=== PATIENT | female | born 1990 | race Native Hawaiian/Other Pacific Islander ===

== ENCOUNTER 2018-05-12 11:21 | Emergency (ER) | payer OTHER, SELFPAY ==
[2018-05-12] VITALS (7 sets, daily range): BP systolic 128–151; BP diastolic 64–101; PULSE 80–95; RESP 14–18; TEMP 36.3–36.9; O2SAT 98–100
--- NOTE | 2018-05-12 12:04 | ED_ITS ---
HPI - Allergic Reaction General Chief complaint: Allergic Reaction Stated complaint: Hives Time Seen by Provider: 05/12/18 11:26 Source: patient Mode of arrival: ambulatory Limitations: no limitations History of Present Illness HPI narrative: Patient is an otherwise healthy 27-year-old female here for evaluation of vertigo. She also states that a couple days ago she had an onset of a rash to include hives. She has all another provider at an outside facility who yesterday started her on prednisone. She states that the hives have not improved but they have not worsened. She states that today she had onset of which he felt like was the room spinning. This also caused nausea and vomiting. No balance issues. She states that she currently does not have a headache but in the past has had headache on the top of her head which is pinpoint it reoccurs and lasts only seconds. She has got no numbness and tingling in arms and legs. She states that when the vertigo sensation is at its maximum intensity she does get short of breath. Related Data Home Medications Medication Instructions Recorded Confirmed prednisone 40 mg PO QDX5 05/12/18 05/12/18 Previous Rx's Medication Instructions Recorded meclizine 25 mg PO BID-TID PRN #20 tab 05/12/18 ondansetron [Zofran ODT] 4 mg PO Q8-12H PRN #10 tab 05/12/18 Allergies Allergy/AdvReac Type Severity Reaction Status Date / Time No Known Drug Allergies Allergy Verified 05/12/18 11:57 Review of Systems Constitutional Denies fatigue, Denies fever(s) and Reports headache(s) Eyes Denies loss of vision ENT Ears, Nose, Mouth, and Throat: Denies dysphagia, Reports vertigo, Reports dizziness and Reports headache(s) Cardiovascular Denies chest pain, Denies syncope and Reports dyspnea Respiratory Reports dyspnea Gastrointestinal Gastrointestinal: Denies dysphagia, Reports nausea and Reports vomiting Genitourinary Denies dysuria Musculoskeletal Denies abnormal gait Integumentary/Breasts Denies rash and Denies wounds Neurologic Denies abnormal gait, Denies behavioral changes, Denies burning sensations, Reports vertigo, Reports dizziness, Denies syncope, Reports headache(s), Denies loss of vision, Denies memory loss and Denies convulsions Psychiatric Denies behavioral changes and Denies memory loss Endocrine Denies fatigue Hematologic/Lymphatic Denies easy bleeding and Denies easy bruising PFSH Medical History Healthy adult (Acute) Surgical History No pertinent past surgical history (Acute) Exam Initial Vital Signs Initial Vital Signs: Vital Signs Temperature 98.5 F 05/12/18 11:26 Pulse Rate 80 05/12/18 11:26 Respiratory Rate 15 05/12/18 11:26 Blood Pressure 150/101 H 05/12/18 11:26 Pulse Oximetry 100 05/12/18 11:26 Const General: cooperative, healthy appearing, comfortable, well developed and well groomed Orientation: alert, awake and oriented x3 HENMT Head: normal to inspection and normocephalic Ears: TM's abnormal bilaterally Resp Effort & Inspection: normal respiratory effort Auscultation: clear to auscultation bilaterally Cardio Rate: regular rate Rhythm: regular rhythm Heart Sounds: no murmurs Pulses: radial pulses present GI Palpation: soft, No firm and No tender Skin Other: Patient with well circumscribed lesions on bilateral upper shoulders consistent with eyes that she had a couple days ago. Neuro General: alert, awake and oriented x3 Cranial Nerves: CN's II-XI intact bilaterally Cognition: normal cognition Speech: speech normal Gait: normal gait Motor: muscle tone normal throughout Sensory Exam: no sensory deficits noted Other: [place]-Hallpike positive on the right Extrem General: normal to inspection and capillary refill normal Psych Appearance: grossly normal and well kempt Course Orders Ordered: ED Orders 05/12/18 14:01 CT head/brain wo con Stat Discontinued Medications Sodium Chloride (Normal Saline 0.9%) 1,000 mls @ 1,000 mls/hr IV BOLUS ONE Stop: 05/12/18 13:25 Last Infusion: 05/12/18 13:57 Dose: 0 mls/hr Admin: 05/12/18 12:37 Dose: 1,000 mls/hr Meclizine HCl (Antivert) 25 mg PO NOW ONE Stop: 05/12/18 12:27 Last Admin: 05/12/18 12:38 Dose: 25 mg Vital Signs - 8 hr 05/12/18 11:26 05/12/18 11:36 05/12/18 12:00 Temperature 98.5 F 98.5 F Pulse Rate 80 80 80 Respiratory Rate 15 15 14 Blood Pressure 151/100 H Blood Pressure [Right Arm] 150/101 H 135/84 Pulse Oximetry 100 100 100 05/12/18 13:00 05/12/18 13:56 05/12/18 14:30 Temperature Pulse Rate 81 95 H 80 Respiratory Rate 15 18 18 Blood Pressure Blood Pressure [Right Arm] 136/80 138/65 134/72 Pulse Oximetry 100 100 98 05/12/18 15:14 Temperature 97.4 F L Pulse Rate 88 Respiratory Rate 16 Blood Pressure 128/64 Blood Pressure [Right Arm] Pulse Oximetry 100 MDM - Allergic Reaction Lab Data Attestation: I reviewed the patient's lab results. Point of Care Testing Test Results Negative Urine Dip Bedside Urine Glucose Negative Bedside Urine Bilirubin - Negative Bedside Urine Ketone - Negative Urine Specific [place] 1.010 Bedside Urine Occult Blood - Negative Bedside Urine pH 7.0 Bedside Urine Protein - Negative Bedside Urine Urobilinogen - Negative Bedside Urine Nitrite - Negative Bedside Urine Leukocytes - Negative Esterase Imaging Data CT scan - head: Radiologist's impression: PROCEDURE: CT HEAD/BRAIN WO CON INDICATIONS: vertigo and headache TECHNIQUE: Noncontrast 4.5 mm thick angled axial sections acquired from the foramen magnum to the vertex, with coronal and sagittal reformats. For radiation dose reduction, the following was used: automated exposure control, adjustment of mA and/or kV according to patient size. COMPARISON: None. FINDINGS: Image quality: Excellent. CSF spaces: Basal cisterns are patent. No extra-axial fluid collections. Ventricles are normal in size and shape. Brain: No midline shift. No intracranial masses or hemorrhage. Garvin-white matter interface is normal. Skull and face: Calvarium and visualized facial bones are intact, without suspicious lesions. Sinuses: Visualized sinuses and mastoids are clear. IMPRESSION: No acute intracranial disease process. Dictated by: Hannah Duron MD, PhD on 05/12/2018 at 14:23 Approved by: Hannah Duron MD, PhD on 05/12/2018 at 14:26 ECG Data Attestation: I personally reviewed and interpreted this ECG as follows: Prior ECG tracings: not available for review Interpretation: Sinus rhythm Ventricular rate is 77 Normal axis Normal QRS Normal QTC No ST T wave changes MDM Narrative Medical decision making narrative: Patient was able to tolerate oral intake here in the emergency department to include meclizine which did seem to improve her symptoms. The head CT was performed because of the headaches that she has been having and also the vertigo. Patient was concerned about a brain mass. I informed her that it was extremely unlikely that this would be the cause of her symptoms today however she insisted on getting a head CT. We did discuss the risks and benefits to include radiation exposure and patient expressed understanding but still would like a CT scan. These discussions were had with the patient's mother in the room we will also stated that she would like to have a head CT. Head CT did come back as unremarkable. I feel like her symptoms are the result of peripheral vertigo. She was given a prescription for meclizine and also Zofran. I feel that her symptoms today and the hives that she has been having are unrelated. She will continue with the prednisone. She was given return precautions. She expressed understanding and agreement plan. Discharge Plan Departure Patient Disposition: Home Clinical Impression: Vertigo, Rash Discharge Date/Time: 05/12/18 15:14 Interventions: ED Discharge Assessment Last Done: 05/12/18 15:14 Instructions: Vertigo (Alternative Therapy), Vertigo Activity Restrictions/Additional Instructions: Recommend you take the medications like we discussed. Keep her scheduled follow -up appointment tomorrow with her primary doctor. Return to the emergency department for any new or worsening symptoms Prescriptions: New meclizine 25 mg tablet 25 mg PO BID-TID PRN (Reason: motion sickness) Qty: 20 RF: 0 ondansetron [Zofran ODT] 4 mg tablet,disintegrating 4 mg PO Q8-12H PRN (Reason: nausea and vomiting) Qty: 10 RF: 0 No Action prednisone 20 mg Tablet 40 mg PO QDX5 RF: 0 Stand Alone Forms: Work/School Restrictions
[2018-05-12] MEDS: SODIUM CHLORIDE 0.9% 1,000 ML 1000 ML IV (12:37)
[2018-05-12] MEDS: MECLIZINE HCL 12.5 MG TABLET 25 MG PO (12:38)
--- NOTE | 2018-05-12 14:01 | DI.CT.S_ITS ---
PROCEDURE: CT HEAD/BRAIN WO CON INDICATIONS: vertigo and headache TECHNIQUE: Noncontrast 4.5 mm thick angled axial sections acquired from the foramen magnum to the vertex, with coronal and sagittal reformats. For radiation dose reduction, the following was used: automated exposure control, adjustment of mA and/or kV according to patient size. COMPARISON: None. FINDINGS: Image quality: Excellent. CSF spaces: Basal cisterns are patent. No extra-axial fluid collections. Ventricles are normal in size and shape. Brain: No midline shift. No intracranial masses or hemorrhage. Garvin-white matter interface is normal. Skull and face: Calvarium and visualized facial bones are intact, without suspicious lesions. Sinuses: Visualized sinuses and mastoids are clear. IMPRESSION: No acute intracranial disease process. Dictated by: Hannah Duron MD, PhD on 05/12/2018 at 14:23 Approved by: Hannah Duron MD, PhD on 05/12/2018 at 14:26
== END 2018-05-12 15:14 | disposition home or self-care (01) ==
PROVIDERS: Emergency Provider Emergency Medicine; PCP Physician Assistant
DX: R42 Dizziness and giddiness (principal); R21 Rash and other nonspecific skin eruption
CPT/HCPCS: 70450; 81003; 81025; 93005; 96360; 99283; 99285

== ENCOUNTER → 2019-05-19 11:54 | Outpatient (CLI) | payer OTHER, SELFPAY ==
--- NOTE | 2019-05-19 | DI.RAD.S_ITS ---
PROCEDURE: XR HIP W PEL IF DONE RT 2V INDICATIONS: right hip pain s/p fall TECHNIQUE: AP pelvis with lateral view(s) of the right hip(s). COMPARISON: None. FINDINGS: Bones: No fractures or dislocations. Pelvic ring appears intact. No suspicious bony lesions. Soft tissues: The visualized bowel gas pattern is normal. No suspicious soft tissue calcifications. IMPRESSION: No acute osseous abnormality. Dictated by: Allen SCHULTZ Interpreted: Rommel Rodriguez MD on 05/19/2019 at 13:52 Approved by: Rommel Rodriguez M.D. on 05/19/2019 at 17:14
== END ==
PROVIDERS: Visit Provider Physician Assistant Medical
DX: M25.551 Pain in right hip (principal)
CPT/HCPCS: 73502

== ENCOUNTER 2020-04-04 15:57 | Emergency (ER) | payer OTHER, SELFPAY ==
[2020-04-04 15:59] VITALS: BP 150/66; PULSE 116; RESP 16; TEMP 36.4; O2SAT 100
[2020-04-04 16:34] LABS: Add Manual Diff / Slide Review NO; Basophils Absolute Auto 100 /uL (0-100); Basophils Percent Auto 0.9 % (0-2); Eosinophils Absolute Auto 200 /uL (0-450); Eosinophils Percent Auto 2.4 % (2-4); Hematocrit 42.8 % (36-46); Hemoglobin 14.2 g/dL (12.0-16.0); Lymphocytes Absolute Auto 2500 /uL (1100-4500); Lymphocytes Percent Auto 35.4 % (25-40); Mean Corpuscular HGB Conc 33.1 % (30-36); Mean Corpuscular Hemoglobin 29.3 PG (26-34); Mean Corpuscular Volume 88.6 fL (80-100); Monocytes Absolute Auto 700 /uL (0-900); Monocytes Percent Auto 9.7 % (3-14); Neutrophils Absolute Auto 3600 /uL (1500-7000); Neutrophils Percent Auto 51.6 % (50-75); Platelet Count 320 X10^3/uL (150-400); Red Blood Cell Count 4.84 X10^6/uL (4.0-5.2); Red Cell Distribution Width 12.7 % (11.6-14.8)
[2020-04-04 16:49] LABS: UR Morphine/Opiate cutoff 300 Negative (Negative); Ur Creatinine Normal (Normal); Ur Specific Gravity Normal (Normal); Urine Cocaine Negative (Negative); Urine pH Normal (Normal)
[2020-04-04 16:50] LABS: Urine Amphetamines Negative (Negative); Urine Barbiturates Negative (Negative); Urine Benzodiazepines Negative (Negative); Urine MDMA Negative (Negative); Urine Methadone Negative (Negative); Urine Methamphetamines Negative (Negative); Urine Oxycodone Negative (Negative); Urine Phencyclidine Negative (Negative); Urine Tetrahydrocannabinol Positive (Negative); Urine Tricyclic Antidepressant Negative (Negative)
[2020-04-04 16:51] LABS: Acetaminophen < 10 ug/mL (10-30); Alanine Aminotransferase 15 IU/L (<35); Albumin 4.8 g/dL (3.5-5.0); Albumin Globulin Ratio 1.5 (1.0-2.8); Alkaline Phosphatase 45 U/L (38-126); Aspartate Aminotransferase 23 IU/L (14-36); BUN Creatinine Ratio 14.1 (6-22); Bilirubin Total 0.5 mg/dL (0.2-1.3); Blood Urea Nitrogen 11 mg/dL (7-17); Calcium 9.4 mg/dL (8.4-10.2); Carbon Dioxide 31 mmol/L (22-32); Chloride 101 mmol/L (98-107); Estimated Glomerular Filt Rate > 60.0 mL/min (>60); Ethanol (ETOH) < 10 mg/dL; Globulin 3.1 g/dL (1.7-4.1); Glucose 81 mg/dL (70-100); HEMOLYSIS 17 (0-50); Potassium 3.9 mmol/L (3.4-5.1); Salicylate < 1.0 mg/dL (<20); Sodium 137 mmol/L (137-145); Total Protein 7.9 g/dL (6.3-8.2)
[2020-04-04 17:27] LABS: Free T4, Direct Thyroxine 1.03 ng/dL (0.78-2.19)
[2020-04-04 17:41] LABS: Thyroid Stimulating Hormone 1.59 uIU/mL (0.47-4.68)
--- NOTE | 2020-04-04 18:55 | CM.SWNOTE ---
GUARD SUPERVISOR note GUARD SUPERVISOR - Terminal Press Operator Assessment GUARD SUPERVISOR - Terminal Press Operator Assessment Start: 04/04/20 18:28 Freq: Status: Active Protocol: Document 04/04/20 18:28 YADIRA (Rec: 04/04/20 18:55 YADIRA [id number]) GUARD SUPERVISOR/Terminal Press Operator Assessment Time Spent with Patient Start date 04/04/20 Visit Start Time 16:40 End date 04/04/20 Visit End Time 18:20 Total time Care Management spent on 100 patient visit-in minutes Mental Health Screening Include Onset, Duration, Intensity Presenting Problem Patient presents to ED today with SI. Patient states she has been actively suicidal for 2 months and describes feeling a loss of demarcus in activities that used to bring demarcus, disconnection from family , feeling disconnected from home, loss of appetite, difficulty sleeping. Patient reports she has feelings of wanting to kill herself and does have a stable plan of how to do so. Precipitating Event(s) Patient attempted suicide 1.5 months prior to today's visit. Patient reports she drove to [place], but was unable to bring herself to jump. Patient reports that jumping off of [place] is a stable plan for her, but does endorse thinking about other means of suicide at times. Patient reports she often goes for drives when she's feeling suicidal and goes to beaches or tries to find spaces that are close to the water. Patient reports another suicide attempt in which she attempted to drown herself in the bathtub. Patient reports that this happened prior to attempting to kill herself by jumping off of the bridge, but does not disclose a specific date or timeframe. Current Behavioral Health Provider(s) None. Patient has engaged in Include Facility, Provider, Ph. # psychiatry and counseling before. Psych. Hx Mental Health and Chemical Patient has worked with Dependency counselors and psychiatrists prior to today's appointment and reports she has had passive feelings of SI on and off for a few years. In addition to SI, patient does report that she is currently experiencing feelings of anxiety and depression. Patient reports that she has been prescribes citalopram, escitalopram, and alprazolam, but is currently not taking any of these medications and has experienced side effects with some of them. Patient endorses daily marijuana use and states this is to help with sleep and anxiety. Patient endorses using alcohol most days, and states daily intake varies between one beer and a pint of whiskey. Patient reports no other substance use. Family Hx of Behavioral Abuse None reported. Psychiatric Hospitalizations (date(s)/ None reported. location) Support System(s) Patient reports strong support system by family and friends. Patient's father came to ED with patient and patient reports support from her spouse and from her employer. Patient reports that these relationships have helped her survive her feelings of suicidality, but states for how much longer?. School/Work Patient has worked at an assisted living facility for over four years. Patient reports having missed multiple days of work due to feelings of depression and suicidality. Legal Concerns Legal Matters - Outstanding Issues None. Mental Status Orientation (Person/Place/Time) Oriented x3 Affect Dysphoric, stable Thought Content - Specify/Describe No obsessions/delusions/ Obsessions, Delusions, Hallucinations hallucinations reported or observed during assessment. Patient reports her thoughts of suicide are regular and are always there. Thought Processes (Evmdwml-Pywvznnj-Sfvr Logical-Goal directed Btkgquce-Hwvmqcpc-Zqznsgsqvg- Vzwuttlfrhzuhk-Aqelmeo-Njskzdivvoga- Thought Blocking) Speech (Nhqgfv-Iuys-Awjsags-Rapid-Soft- Normal Loud-Pressured) Motor ([place]o-Anfwqkwuj-Tnho-Other) Normal Insight (Present-Partially Present- Present Impaired) Judgement (Intact-Impaired) Intact Impulse Control (Adequate-Impaired) Adequate Memory (Scvorihcq-Gsbykb-Qvgzef, Intact x3 Impaired-Intact) Concentration (Intact-Impaired) Intact Attention (Intact-Impaired) Intact Behavior (Appropriate-Inappropriate) Appropriate Risk Assessment Suicidal Ideation (Plan) Yes Homicidal Ideation (Plan) No Comment Patient denies HI. Patient endorses feeling actively suicidal for over 2 months, with daily thoughts of wanting to commit suicide. Patient reports a suicide attempt roughly 1.5 months prior in which she attempted to kill herself by jumping [place] of [place]. Patient reports a previous attempt in which she attempted to kill herself in a bathtub. Patient reports that she still has a plan of suicide by jumping [place] [address]. Intervention Intervention GUARD SUPERVISOR meets with patient. Patient's father present at start of assessment, and patient provides consent for father to be there. When patient's father steps out to use bathroom, patient informs GUARD SUPERVISOR that it would be easier to talk if her father was not in the room because she does not want him to know how she has been feeling. Patient asks father to upon his return, and father returns to waiting room. GUARD SUPERVISOR and patient complete assessment. Patient describes stable suicide ideation with plan and recent attempts. Patient states she has tried seeing counselors, but has struggled to make all the appointments while she feels like this and states she feels as though she would benefit from inpatient treatment. GUARD SUPERVISOR and patient discuss this, and patient provides GUARD SUPERVISOR permission to contact local hospitals to secure placement. Throughout assessment, GUARD SUPERVISOR validates and normalizes patient's feelings of guilt and exhaustions, and highlights patient's strengths including her commitment to her work and her deep caring for her family. GUARD SUPERVISOR exits room and updates Dr. Gustafson and MERRICK Carney. Plan RA Plan GUARD SUPERVISOR will seek voluntary inpatient behavioral health bed for patient. KRISTINA Luo
--- NOTE | 2020-04-04 19:20 | ED_ITS ---
HPI - Psych General Chief Complaint: Psychiatric Symptoms Stated Complaint: suicidal Time Seen by Provider: 04/04/20 18:03 Source: patient and family Mode of arrival: Ambulatory Limitations: no limitations History of Present Illness HPI Narrative: Patient is a 29-year-old female here voluntarily seeking admission for suicidal ideation and depression. She states she has been struggling with these issues for many years now. She states she is not taking any medications for these problems. Has never been admitted to the hospital in the past. Denies drinking any alcohol in the past 24 hours but did smoke some m arijuana. She states that she has had thoughts of suicide on a daily basis for the past several years. States she has tried to hurt herself in the past but has not tried anything in the past several days/weeks. She states she does have a daily ?stable ?plan to hurt herself. She was somewhat reluctant to discuss any more information with me because she states ?I have already told everyone else ?she is here voluntarily seeking admission. Related Data Home Medications Medication Instructions Recorded Confirmed prednisone 40 mg PO QDX5 05/12/18 05/12/18 Previous Rx's Medication Instructions Recorded meclizine 25 mg PO BID-TID PRN #20 tab 05/12/18 ondansetron [Zofran ODT] 4 mg PO Q8-12H PRN #10 tab 05/12/18 Allergies Allergy/AdvReac Type Severity Reaction Status Date / Time No Known Drug Allergies Allergy Verified 05/12/18 11:57 Review of Systems Constitutional Constitutional: Denies fever(s) and Denies headache(s) ENT Ears, Nose, Mouth, and Throat: Denies headache(s) Cardiovascular Cardiovascular: Denies chest pain and Denies dyspnea Respiratory Respiratory: Denies dyspnea Gastrointestinal Gastrointestinal: Denies abdominal pain Genitourinary Genitourinary: Denies dysuria Genitourinary: Denies dysuria Integumentary/Breasts Skin/Breast: Denies rash Neurologic Neurologic: Denies behavioral changes and Denies headache(s) Psychiatric Psychiatric: Reports anxiety, Denies behavioral changes and Reports depression Hematologic/Lymphatic Hematologic/Lymphatic: Denies easy bleeding and Denies easy bruising Allergic/Immunologic Allergic/Immunologic: Denies urticaria Patient History Medical History Healthy adult (Acute) Surgical History No pertinent past surgical history (Acute) alcohol intake frequency: 0-2 drinks per day Substance Use Type: marijuana Exam Initial Vital Signs Initial Vital Signs: Vital Signs Temperature 97.6 F 04/04/20 15:59 Pulse Rate 116 H 04/04/20 15:59 Respiratory Rate 16 04/04/20 15:59 Blood Pressure 150/66 H 04/04/20 15:59 Pulse Oximetry 100 04/04/20 15:59 Const General: cooperative and healthy appearing HENIA Head: normal to inspection and normocephalic Resp Effort & Inspection: normal respiratory effort Auscultation: clear to auscultation bilaterally Cardio Rate: regular rate Rhythm: regular rhythm GI Inspection: non-distended Palpation: soft Skin Lesions: no lesions Rashes: no rashes Neuro General: patient alert, patient awake and patient oriented x3 Cognition: normal cognition Speech: speech normal Extrem General: normal to inspection and capillary refill normal Psych Appearance: grossly normal and well kempt Mood: congruent mood Affect: sad Attitude: cooperative Thought Content: suicidality Scores GCS [place] coma scale eye opening: Spontaneous Purvi coma scale verbal response: Orientated Purvi coma scale motor response: Obey commands [place] coma scale total score: 15 Course Orders Ordered: ED Orders 04/04/20 16:11 Consult to DELINQUENT TAX COLLECTION ASSISTANT - Search Engine Optimization Specialist Stat 04/04/20 16:20 Acetaminophen Stat Complete Blood Count AUTO DIFF Stat Comprehensive Metabolic Panel Stat Ethanol (ETOH) Stat Free T4, Direct Thyroxine Stat Salicylate Stat Thyroid Stimulating Hormone Stat 04/04/20 16:27 Urine Drug Screen, Rapid Stat Vital Signs Vital signs: Vital Signs - 8 hr 04/04/20 15:59 04/04/20 19:55 Temperature 97.6 F Pulse Rate 116 H 91 H Respiratory Rate 16 Blood Pressure 150/66 H 133/84 Pulse Oximetry 100 100 MDM - Psych Medical Records Attestation: I reviewed the patient's medical records. Lab Data Attestation: I reviewed the patient's lab results. Result diagrams: 04/04/20 16:20 04/04/20 16:20 Labs: Lab Results 04/04/20 04/04/20 04/04/20 Range/Units 16:20 16:20 16:20 WBC 7.0 (4.5-11.0) X10^3/uL RBC 4.84 (4.0-5.2) X10^6/uL Hgb 14.2 (12.0-16.0) g/dL Hct 42.8 (36-46) % MCV 88.6 (80-100) fL MCH 29.3 (26-34) PG MCHC 33.1 (30-36) % RDW 12.7 (11.6-14.8) % Plt Count 320 (150-400) X10^3/uL Neut % (Auto) 51.6 (50-75) % Lymph % (Auto) 35.4 (25-40) % Grady % (Auto) 9.7 (3-14) % Eos % (Auto) 2.4 (2-4) % Baso % (Auto) 0.9 (0-2) % Neut # (Auto) 3600 (4792-6432) /uL Lymph # (Auto) 2500 (7595-9152) /uL Grady # (Auto) 700 (0-900) /uL Eos # (Auto) 200 (0-450) /uL Baso # (Auto) 100 (0-100) /uL Sodium 137 (137-145) mmol/L Potassium 3.9 (3.4-5.1) mmol/L Chloride 101 (98-107) mmol/L Carbon Dioxide 31 (22-32) mmol/L BUN 11 (7-17) mg/dL Creatinine 0.78 (0.52-1.04) mg/dL Estimated GFR > 60.0 (>60) mL/min BUN/Creatinine Ratio 14.1 (6-22) Glucose 81 (70-100) mg/dL Calcium 9.4 (8.4-10.2) mg/dL Total Bilirubin 0.5 (0.2-1.3) mg/dL AST 23 (14-36) IU/L ALT 15 (<35) IU/L Alkaline Phosphatase 45 (38-126) U/L Total Protein 7.9 (6.3-8.2) g/dL Albumin 4.8 (3.5-5.0) g/dL Globulin 3.1 (1.7-4.1) g/dL Albumin/Globulin Ratio 1.5 (1.0-2.8) TSH 1.59 (0.47-4.68) uIU/mL Free T4 1.03 (0.78-2.19) ng/dL Salicylates < 1.0 (<20) mg/dL U Opiates 300ng/mL cut (Negative) Ur Oxycodone Screen (Negative) Urine Methadone Screen (Negative) Acetaminophen < 10 L (10-30) ug/mL Ur Barbiturates Screen (Negative) U Tricyclic Antidepress (Negative) Ur Phencyclidine Scrn (Negative) Ur Amphetamines Screen (Negative) U Methamphetamines Scrn (Negative) Ur MDMA Scrn (Ecstasy) (Negative) U Benzodiazepines Scrn (Negative) Urine Cocaine Screen (Negative) U Marijuana (THC) Screen (Negative) Ethyl Alcohol < 10 ( - 10) mg/dL COVID-19 PCR (Negative) 04/04/20 04/04/20 Range/Units 16:27 19:05 WBC (4.5-11.0) X10^3/uL RBC (4.0-5.2) X10^6/uL Hgb (12.0-16.0) g/dL Hct (36-46) % MCV (80-100) fL MCH (26-34) PG MCHC (30-36) % RDW (11.6-14.8) % Plt Count (150-400) X10^3/uL Neut % (Auto) (50-75) % Lymph % (Auto) (25-40) % Grady % (Auto) (3-14) % Eos % (Auto) (2-4) % Baso % (Auto) (0-2) % Neut # (Auto) (4185-4838) /uL Lymph # (Auto) (1103-7888) /uL Grady # (Auto) (0-900) /uL Eos # (Auto) (0-450) /uL Baso # (Auto) (0-100) /uL Sodium (137-145) mmol/L Potassium (3.4-5.1) mmol/L Chloride (98-107) mmol/L Carbon Dioxide (22-32) mmol/L BUN (7-17) mg/dL Creatinine (0.52-1.04) mg/dL Estimated GFR (>60) mL/min BUN/Creatinine Ratio (6-22) Glucose (70-100) mg/dL Calcium (8.4-10.2) mg/dL Total Bilirubin (0.2-1.3) mg/dL AST (14-36) IU/L ALT (<35) IU/L Alkaline Phosphatase (38-126) U/L Total Protein (6.3-8.2) g/dL Albumin (3.5-5.0) g/dL Globulin (1.7-4.1) g/dL Albumin/Globulin Ratio (1.0-2.8) TSH (0.47-4.68) uIU/mL Free T4 (0.78-2.19) ng/dL Salicylates (<20) mg/dL U Opiates 300ng/mL cut Negative (Negative) Ur Oxycodone Screen Negative (Negative) Urine Methadone Screen Negative (Negative) Acetaminophen (10-30) ug/mL Ur Barbiturates Screen Negative (Negative) U Tricyclic Antidepress Negative (Negative) Ur Phencyclidine Scrn Negative (Negative) Ur Amphetamines Screen Negative (Negative) U Methamphetamines Scrn Negative (Negative) Ur MDMA Scrn (Ecstasy) Negative (Negative) U Benzodiazepines Scrn Negative (Negative) Urine Cocaine Screen Negative (Negative) U Marijuana (THC) Screen Positive H (Negative) Ethyl Alcohol ( - 10) mg/dL COVID-19 PCR Negative (Negative) Point of Care Testing Test Results Negative Urine Dip Bedside Urine Glucose Negative Bedside Urine Bilirubin - Negative Bedside Urine Ketone +/- 5 Urine Specific Lindsey 1.025 Bedside Urine Occult Blood - Negative Bedside Urine pH 6 Bedside Urine Protein +/- 15 Bedside Urine Urobilinogen 1+ 2mg Bedside Urine Nitrite - Negative Bedside Urine Leukocytes - Negative Esterase MDM Narrative Medical decision making narrative: Patient has a history of depression/anxiety. Has prior suicidal attempts. Is here voluntarily seeking admission. Is currently suicidal. Is medically cleared. Please see DELINQUENT TAX COLLECTION ASSISTANT note for more detaile d information regarding her mental health history and she was somewhat reluctant to provide any this information to me. Patient is stable for transfer Pt seen and evaluated by social work. Voluntary placement secured by social Work. Patient remains medically cleared. Will transfer. Discharge Plan Departure Patient Disposition: Xfer Psychiatric Hosp Clinical Impression: Suicidal ideation Depression Qualifiers: Depression Type: unspecified Qualified Code(s): F32.9 - Major depressive disorder, single episode, unspecified
[2020-04-04 19:55] VITALS: BP 133/84; PULSE 91; O2SAT 100
[2020-04-04 20:02] LABS: COVID19 -Nasal RAPID Negative (Negative)
--- NOTE | 2020-04-04 20:35 | CM.SWNOTE ---
COUNTY SHERIFF note COUNTY SHERIFF receives call from Renee at [facility]. Patient is accepted to transfer to [facility]. Details of acceptance below: Accepted at , [address] Check in at 0100 04/05. Accepting Provider: KINGSLEY Vasquez. [id number] [phone]. Intake Contact: Renee. COUNTY SHERIFF informs patient, MERRICK Simms, and [facility]. [facility] to coordinate transport, and all parties remain agreeable to plan for patient to transfer to [facility]. Pl: Patient to transfer to [facility] for inpatient behavioral health treatment. KRISTINA Luo
--- NOTE | 2020-04-05 15:26 | CM.SWNOTE ---
SENIOR NET SOFTWARE ENGINEER Note- Post DC Call Received call today at ext [phone] (acute care floor) from partner Nancy looking for ED SENIOR NET SOFTWARE ENGINEER Jaden; Nancy tearful and explains that Aurelia arrived at [facility] last night and today is questioning if she will stay. Nancy fearful that Aurelia will leave and begin to self medicate by drinking which might lead to self destructive behavior, as it has in the past. Aurelia has told Nancy today that no one has told her what to expect and no one has discussed a treatment course with her at [facility], so Aurelia is feeling anxious and wondering why she is at [facility]. This SENIOR NET SOFTWARE ENGINEER explained to partner Nancy that a call from this SENIOR NET SOFTWARE ENGINEER to [facility] would not be productive or professional. This SENIOR NET SOFTWARE ENGINEER agreeable to thinking about alternative treatment options (outpatient?) and can send by email to Nancy. Nancy remains tearful, gives email and states appreciation for assist. Nancy Buchanan Email: [email or web address] P# [phone] Sent following email to Nancy: Jose Cruz, In reflecting on our conversation earlier about Aurelia, I don?t feel a list of alternative inpatient psychiatric units would be helpful, since they often require medical clearance before admission. I?ll reiterate once again that Aurelia should seek stabilization and advice from an ER staff if she leaves [facility] and continues to have thoughts of harm to self or to others. For intensive outpatient treatment, contacting the customer service number for [employer] might be helpful so that Aurelia can understand what outpatient providers [employer] contracts with. People have had success when they are a part of intensive outpatient treatment because they can attend classes and group therapy weekly but still return home to their families. In addition, [facility] P#[phone] would be accessible to Aurelia, she could call and/or arrive for their weekly walk in appts. Which are held on Fridays. She would need to arrive in the parking lot at 5:30AM to secure an appt/assessment to identify needs and arrange appropriate services for her. I hope you found this helpful. I am sorry to hear that Aurelia?s time at [facility] has not been productive so far, I hope things improve quickly. Take good care of yourself, Julia Funk, SENIOR NET SOFTWARE ENGINEER
== END 2020-04-04 23:10 ==
PROVIDERS: Emergency Medicine; Emergency Provider Emergency Medicine
DX: R45.851 Suicidal ideations (principal); F32.9 Major depressive disorder, single episode, unspecified
CPT/HCPCS: 36415; 80053; 80305; 80320; 80329; 81003; 81025; 84439; 84443; 85025; 87635; 99284; G0480

== ENCOUNTER 2020-06-28 11:56 | Emergency (ER) | payer OTHER, SELFPAY ==
[2020-06-28 12:15] VITALS: BMI 27.4
[2020-06-28 12:33] VITALS: PULSE 65
[2020-06-28 12:39] LABS: Add Manual Diff / Slide Review NO; Basophils Absolute Auto 0 /uL (0-100); Basophils Percent Auto 0.5 % (0-2); Eosinophils Absolute Auto 100 /uL (0-450); Eosinophils Percent Auto 1.1 % (2-4); Hematocrit 39.4 % (36-46); Hemoglobin 13.4 g/dL (12.0-16.0); Lymphocytes Absolute Auto 1100 /uL (1100-4500); Lymphocytes Percent Auto 11.5 % (25-40); Mean Corpuscular Hemoglobin 29.3 PG (26-34); Monocytes Absolute Auto 600 /uL (0-900); Monocytes Percent Auto 6.8 % (3-14); Neutrophils Absolute Auto 7500 /uL (1500-7000); Neutrophils Percent Auto 80.1 % (50-75); Platelet Count 283 X10^3/uL (150-400); Red Blood Cell Count 4.58 X10^6/uL (4.0-5.2); Red Cell Distribution Width 13.2 % (11.6-14.8); White Blood Cell Count 9.4 X10^3/uL (4.5-11.0)
[2020-06-28 12:45] LABS: INR 1.1 (0.9-1.3); Prothrombin Time 12.4 SECONDS (10.1-12.7)
[2020-06-28 12:47] LABS: PTT Partial Thromboplastin Tim 34 SECONDS (26.4-36.2)
[2020-06-28 12:50] LABS: Alanine Aminotransferase 14 IU/L (<35); Albumin 4.6 g/dL (3.5-5.0); Albumin Globulin Ratio 1.4 (1.0-2.8); Alkaline Phosphatase 58 U/L (38-126); Aspartate Aminotransferase 21 IU/L (14-36); BUN Creatinine Ratio 12.5 (6-22); Bilirubin Total 0.6 mg/dL (0.2-1.3); Blood Urea Nitrogen 8 mg/dL (7-17); Calcium 9.5 mg/dL (8.4-10.2); Carbon Dioxide 22 mmol/L (22-32); Chloride 107 mmol/L (98-107); Estimated Glomerular Filt Rate > 60.0 mL/min (>60); Globulin 3.2 g/dL (1.7-4.1); Glucose 121 mg/dL (70-100); HEMOLYSIS < 15 (0-50); Lipase 93 U/L (23-300); Potassium 3.3 mmol/L (3.4-5.1); Sodium 139 mmol/L (137-145); Total Protein 7.8 g/dL (6.3-8.2)
[2020-06-28 13:10] VITALS: BP 139/94; PULSE 70; RESP 16; O2SAT 99
[2020-06-28] MEDS: ONDANSETRON 4 MG/2 ML INJ (13:53)
[2020-06-28] MEDS: SODIUM CHLORIDE 0.9% 1,000 ML 1000 ML IV ×2 (13:53→16:01)
[2020-06-28 14:00] VITALS: BP 130/97; PULSE 94; RESP 16; O2SAT 99
--- NOTE | 2020-06-28 14:07 | ED_ITS ---
HPI - Abdominal Pain General Chief Complaint: Abdominal Pain Stated Complaint: vomiting, hard time breathing, chest pain Time Seen by Provider: 06/28/20 13:46 Source: patient Mode of arrival: Wheelchair Limitations: no limitations History of Present Illness HPI narrative: This is a 29-year-old female who comes to the emergency department with complaint of epigastric pain radiating towards her back. Patient states she has been nauseated she did vomit some but she is not currently vomiting. She did have Zofran at home which she took without much improvement in her nausea. Patient states she has not had a fever by thermometer but she has felt sweaty and chilled. Patient has not had a bowel movement in about 24 hours but states she has not had any new changes to her bowel movements she has not appreciate any diarrhea or constipation. She has did not describe some frequency but no urgency or dysuria. She denies any flank pain. Patient is quite anxious and uncomfortable. She states that she thinks she is having abdominal pain secondary the fact that she has any anything for the last several days, she has been taking her medications on an empty stomach. She does use marijuana intermittently, denies any tobacco and drinks occasionally. She denies any abdominal surgeries. No known drug allergies. She does take medications for mental health. She is currently accompanied by her mother at this time. Related Data Home Medications Medication Instructions Recorded Confirmed prednisone 40 mg PO QDX5 05/12/18 05/12/18 Previous Rx's Medication Instructions Recorded meclizine 25 mg PO BID-TID PRN #20 tab 05/12/18 ondansetron [Zofran ODT] 4 mg PO Q8-12H PRN #10 tab 05/12/18 pantoprazole [Protonix] 40 mg PO DAILY #30 tab 06/28/20 promethazine 25 mg PO TID PRN #20 tab 06/29/20 promethazine 25 mg AK Q6H PRN #12 each 06/29/20 Allergies Allergy/AdvReac Type Severity Reaction Status Date / Time No Known Drug Allergies Allergy Verified 05/12/18 11:57 Review of Systems Review of Systems ROS Unobtainable: All systems reviewed & are unremarkable except as noted in HPI and below Patient History Medical History Healthy adult (Acute) Surgical History No pertinent past surgical history (Acute) Social History Smoking Status: Never smoker Smoking Status: Never smoker alcohol intake frequency: 0-2 drinks per day Substance Use Type: marijuana Exam Narrative Exam Narrative: GENERAL: Alert and oriented x three, well-nourished female in moderate distress. Patient feels quite anxious and frustrated at this time. HEENT: Head normocephalic, atraumatic, EOMI, pupils reactive, face symmetric, moist mucous membranes NECK: Supple, full range of motion CARDIOVASCULAR: Regular rate and rhythm without murmurs, rubs or gallops. RESPIRATORY: Breath sounds equal bilaterally, no wheezes rales or rhonchi. ABDOMEN: Soft, positive for epigastric tenderness. Normoactive bowel sounds all 4 quadrants. No guarding or rebound, rigidity, no mass, nondistended. : No CVA tenderness EXTREMITIES: Normal range of motion, no clubbing or edema. Neurovascularly intact NEUROLOGICAL: Cranial nerves II through XII grossly intact. Moving all extremities SKIN: Warm, dry, no petechiae, no rashes or lesions. Initial Vital Signs Initial Vital Signs: Vital Signs Pulse Rate 65 06/28/20 12:33 Course Orders Ordered: Discontinued Medications Diphenhydramine HCl (Benadryl) 50 mg IV NOW ONE Stop: 06/28/20 15:45 Last Admin: 06/28/20 16:02 Dose: 50 mg Documented by: FÁTIMA Haloperidol (Haldol) 5 mg IV NOW ONE Stop: 06/28/20 15:45 Last Admin: 06/28/20 16:01 Dose: 5 mg Documented by: FÁTIMA Hydromorphone HCl (Dilaudid) 0.5 mg IV NOW ONE Stop: 06/28/20 14:52 Last Admin: 06/28/20 15:00 Dose: 0.5 mg Documented by: FÁTIMA Sodium Chloride (Normal Saline 0.9%) 1,000 mls @ 1,000 mls/hr IV BOLUS ONE Stop: 06/28/20 14:49 Last Infusion: 06/28/20 15:45 Dose: 0 mls/hr Documented by: Admin: 06/28/20 13:53 Dose: 1,000 mls/hr Documented by: FÁTIMA Sodium Chloride (Normal Saline 0.9%) 1,000 mls @ 1,000 mls/hr IV BOLUS ONE Stop: 06/28/20 16:45 Last Infusion: 06/28/20 17:58 Dose: 0 mls/hr Documented by: Admin: 06/28/20 16:01 Dose: 1,000 mls/hr Documented by: FÁTIMA Morphine Sulfate (Morphine) 2 mg IV NOW ONE Stop: 06/28/20 14:07 Last Admin: 06/28/20 14:13 Dose: 2 mg Documented by: FÁTIMA Pantoprazole Sodium (Protonix) 40 mg IV NOW ONE Stop: 06/28/20 14:07 Last Admin: 06/28/20 14:13 Dose: 40 mg Documented by: FÁTIMA Reevaluation(s) Reevaluation #1: patient is still quite uncomfortable, narcotics and antiemetics were briefly helpful but then patient's discomfort improved. We discussed trying a alternative treatment with haloperidol and Benadryl. Time: 16:01 Reevaluation #2: Patient is sleeping comfortably on recheck. Time: 17:49 Vital Signs Vital signs: Vital Signs - 8 hr 06/28/20 13:10 06/28/20 14:00 06/28/20 17:17 Pulse Rate 70 94 H 65 Respiratory Rate 16 16 16 Blood Pressure 139/94 H 130/97 H 101/54 L Pulse Oximetry 99 99 99 MDM - Abdominal Pain Lab Data Attestation: I reviewed the patient's lab results. Lab results narrative: Patient's labs show normal white count, neutrophils have left shift of 80% coags are normal, potassium is decreased at 3.3 with normal sodium, other electrolytes are normal renal function. Glucose is 121, lipase is in normal range. Urine tox is positive for THC, otherwise negative. COVID is negative. Result diagrams: 06/28/20 12:25 06/28/20 12:25 Labs: Lab Results 06/28/20 06/28/20 06/28/20 Range/Units 12:25 12:25 12:25 WBC 9.4 (4.5-11.0) X10^3/uL RBC 4.58 (4.0-5.2) X10^6/uL Hgb 13.4 (12.0-16.0) g/dL Hct 39.4 (36-46) % MCV 86.0 (80-100) fL MCH 29.3 (26-34) PG MCHC 34.0 (30-36) % RDW 13.2 (11.6-14.8) % Plt Count 283 (150-400) X10^3/uL Neut % (Auto) 80.1 H (50-75) % Lymph % (Auto) 11.5 L (25-40) % [place] % (Auto) 6.8 (3-14) % Eos % (Auto) 1.1 L (2-4) % Baso % (Auto) 0.5 (0-2) % Neut # (Auto) 7500 H (5163-8577) /uL Lymph # (Auto) 1100 (9488-6417) /uL [place] # (Auto) 600 (0-900) /uL Eos # (Auto) 100 (0-450) /uL Baso # (Auto) 0 (0-100) /uL PT 12.4 (10.1-12.7) SECONDS INR 1.1 (0.9-1.3) APTT 34 (26.4-36.2) SECONDS Sodium 139 (137-145) mmol/L Potassium 3.3 L (3.4-5.1) mmol/L Chloride 107 (98-107) mmol/L Carbon Dioxide 22 (22-32) mmol/L BUN 8 (7-17) mg/dL Creatinine 0.64 (0.52-1.04) mg/dL Estimated GFR > 60.0 (>60) mL/min BUN/Creatinine Ratio 12.5 (6-22) Glucose 121 H (70-100) mg/dL Calcium 9.5 (8.4-10.2) mg/dL Total Bilirubin 0.6 (0.2-1.3) mg/dL AST 21 (14-36) IU/L ALT 14 (<35) IU/L Alkaline Phosphatase 58 (38-126) U/L Total Protein 7.8 (6.3-8.2) g/dL Albumin 4.6 (3.5-5.0) g/dL Globulin 3.2 (1.7-4.1) g/dL Albumin/Globulin Ratio 1.4 (1.0-2.8) Lipase 93 (23-300) U/L Serum , Qual (Negative) Urine RBC (0-5/HPF) Urine WBC (0-5/HPF) Ur Squamous Epith Cells (0-5/HPF) Amorphous Sediment Urine Bacteria (None) Urine Mucus (Negative) Ur Culture Indicated? 06/28/20 06/28/20 Range/Units 14:08 16:47 WBC (4.5-11.0) X10^3/uL RBC (4.0-5.2) X10^6/uL Hgb (12.0-16.0) g/dL Hct (36-46) % MCV (80-100) fL MCH (26-34) PG MCHC (30-36) % RDW (11.6-14.8) % Plt Count (150-400) X10^3/uL Neut % (Auto) (50-75) % Lymph % (Auto) (25-40) % [place] % (Auto) (3-14) % Eos % (Auto) (2-4) % Baso % (Auto) (0-2) % Neut # (Auto) (6101-2657) /uL Lymph # (Auto) (0957-5187) /uL [place] # (Auto) (0-900) /uL Eos # (Auto) (0-450) /uL Baso # (Auto) (0-100) /uL PT (10.1-12.7) SECONDS INR (0.9-1.3) APTT (26.4-36.2) SECONDS Sodium (137-145) mmol/L Potassium (3.4-5.1) mmol/L Chloride (98-107) mmol/L Carbon Dioxide (22-32) mmol/L BUN (7-17) mg/dL Creatinine (0.52-1.04) mg/dL Estimated GFR (>60) mL/min BUN/Creatinine Ratio (6-22) Glucose (70-100) mg/dL Calcium (8.4-10.2) mg/dL Total Bilirubin (0.2-1.3) mg/dL AST (14-36) IU/L ALT (<35) IU/L Alkaline Phosphatase (38-126) U/L Total Protein (6.3-8.2) g/dL Albumin (3.5-5.0) g/dL Globulin (1.7-4.1) g/dL Albumin/Globulin Ratio (1.0-2.8) Lipase (23-300) U/L Serum , Qual Negative (Negative) Urine RBC 1-5/hpf (0-5/HPF) Urine WBC 1-5/hpf (0-5/HPF) Ur Squamous Epith Cells 0-1 /hpf (0-5/HPF) Amorphous Sediment 2+ Urine Bacteria Occasional (0-1) (None) Urine Mucus 1+ H (Negative) Ur Culture Indicated? Cult not indicated Point of care testing: Urine Dip Bedside Urine Glucose Negative Bedside Urine Bilirubin - Negative Bedside Urine Ketone +++ 80 Urine Specific [place] 1.005 Bedside Urine Occult Blood +/- Bedside Urine pH 9.0 Bedside Urine Protein - Negative Bedside Urine Urobilinogen - Negative Bedside Urine Nitrite - Negative Bedside Urine Leukocytes - Negative Esterase Imaging Data CT scan - abdomen/pelvis: Radiologist's Impression: [address] [address] [address] Scan Report Signed Patient: Aurelia Arredondo JMR#: [id number] : 1990Acct:[id number] Age/Sex: 29 / FDate of Service: 06/28/20 Loc: ED Accession Number: [id number] Procedure: CT abdomen pelvis w con Ordering Provider: Nikki Espinoza D.O. PROCEDURE: CT ABDOMEN PELVIS W CON COMPARISON: None. INDICATIONS: epigastric pain, radiates to back, no lft changes. FINDINGS: Image quality: Excellent. Lung bases: Lung bases are clear. Heart size is normal. Solid organs: Liver: The liver has no mass or intrahepatic biliary ductal dilatation. The portal vein and hepatic veins are patent. Biliary: The gallbladder has no gallstones, pericholecystic fluid, gallbladder wall thickening, or surrounding inflammatory change. Pancreas: The pancreas has no mass or ductal dilatation. There is no surrounding inflammation. Spleen: Normal size. There are no masses. Adrenals: No hypertrophy or nodules. Kidneys: No obstructive calculus or hydronephrosis. No solid mass. No cystic mass. Peritoneum and bowel: The distal esophagus and stomach are normal. The small bowel has a normal caliber and appearance. The terminal ileum is normal. The large bowel has a normal caliber and appearance. The appendix is normal. No free fluid or air. Nodes and vessels: No retroperitoneal or mesenteric adenopathy by size criteria. Aorta and inferior vena cava are normal in size. Miscellaneous: No abdominal wall mass or hernia. PELVIS: Genitourinary: The bladder has no wall thickening or mass. No bladder calcifications. Miscellaneous: No inguinal hernias or adenopathy. Bones: No suspicious bony lesions. No vertebral body compression fractures. IMPRESSION: No acute abdominal or pelvic abnormality. Dictated by: Ger Perez M.D. on 06/28/2020 at 14:49 Approved by: Ger Perez M.D. on 06/28/2020 at 14:55 MDM Narrative Medical decision making narrative: Patient had fluids started, Zofran, Protonix and 2 mg of morphine. On recheck patient had improvement but then return of nausea and pain. Given additional dose of medication. Lab and CT are negative. Urine with ketones but no signs of infection. Patient morphine and Dilaudid which would improve her pain for short period of time but then return. Discussed trying a hyperemesis type protocol with Haldol and Benadryl which patient was interested in trying, she is receiving a 2nd L of fluids and on recheck patient is resting comfortably. Patient and I did discuss her findings today there is possibility she could have hyperemesis secondary to THC, vs ulcer or other. Discharge Plan Departure Patient Disposition: Home Clinical Impression: Abdominal pain Qualifiers: Abdominal location: unspecified location Qualified Code(s): R10.9 - Unspecified abdominal pain Vomiting Qualifiers: Vomiting type: unspecified Vomiting Intractability: non-intractable Nausea presence: with nausea Qualified Code(s): R11.2 - Nausea with vomiting, unspecified Discharge Date/Time: 06/28/20 19:09 Instructions: DI for Cannabinoid Hyperemesis Syndrome Activity Restrictions/Additional Instructions: Follow up in the next week for recheck. You may continue zofran 4mg every 6 hours as needed. Continue Protonix 1 tablet daily. You may continue home medications but I would recommend making sure you are drinking fluids regularly and eating small snacks. THC or marijuana is known to cause a hyperemesis syndrome in some patients and this may be the cause of her symptoms today, I would refrain from using any THC products for the next several weeks to see if this improves her symptoms, it can take several days to weeks to notice a change. You may wish to also follow up for an EGD if you continue to have issues of symptoms to evaluate for ulcers or gastritis. Return for fevers greater 100.4 F, persistent vomiting, black or bloody vomit or stool, severe abdominal pain, chest pain, passing out or other new or concerning symptoms Prescriptions: New pantoprazole [Protonix] 40 mg tablet,delayed release (DR/EC) 40 mg PO DAILY Qty: 30 RF: 0 No Action promethazine 25 mg tablet 25 mg PO TID PRN (Reason: nausea and vomiting) Qty: 20 RF: 0 promethazine 25 mg suppository 25 mg AK Q6H PRN (Reason: nausea and vomiting) Qty: 12 RF: 0 prednisone 20 mg Tablet 40 mg PO QDX5 RF: 0 meclizine 25 mg tablet 25 mg PO BID-TID PRN (Reason: motion sickness) Qty: 20 RF: 0 ondansetron [Zofran ODT] 4 mg tablet,disintegrating 4 mg PO Q8-12H PRN (Reason: nausea and vomiting) Qty: 10 RF: 0 Referrals: Mariajose Adkins MD [Physician] - ED Sign-out Sign Out Provider Sign Out Attestation: Patient Sign Out occurred on 06/28/20 at 1900. Patient's care was discussed, and care was transferred from Dr. Espinoza to Dr. Hi. Plan is to re-evaluate, if patient has improved plan to discharge home.
[2020-06-28] MEDS: MORPHINE 2 MG/ML INJ IV (14:13)
[2020-06-28] MEDS: PANTOPRAZOLE 40 MG VIAL IV (14:13)
--- NOTE | 2020-06-28 14:15 | DI.CT.S_ITS ---
PROCEDURE: CT ABDOMEN PELVIS W CON COMPARISON: None. INDICATIONS: epigastric pain, radiates to back, no lft changes. FINDINGS: Image quality: Excellent. Lung bases: Lung bases are clear. Heart size is normal. Solid organs: Liver: The liver has no mass or intrahepatic biliary ductal dilatation. The portal vein and hepatic veins are patent. Biliary: The gallbladder has no gallstones, pericholecystic fluid, gallbladder wall thickening, or surrounding inflammatory change. Pancreas: The pancreas has no mass or ductal dilatation. There is no surrounding inflammation. Spleen: Normal size. There are no masses. Adrenals: No hypertrophy or nodules. Kidneys: No obstructive calculus or hydronephrosis. No solid mass. No cystic mass. Peritoneum and bowel: The distal esophagus and stomach are normal. The small bowel has a normal caliber and appearance. The terminal ileum is normal. The large bowel has a normal caliber and appearance. The appendix is normal. No free fluid or air. Nodes and vessels: No retroperitoneal or mesenteric adenopathy by size criteria. Aorta and inferior vena cava are normal in size. Miscellaneous: No abdominal wall mass or hernia. PELVIS: Genitourinary: The bladder has no wall thickening or mass. No bladder calcifications. Miscellaneous: No inguinal hernias or adenopathy. Bones: No suspicious bony lesions. No vertebral body compression fractures. IMPRESSION: No acute abdominal or pelvic abnormality. Dictated by: Ger Perez M.D. on 06/28/2020 at 14:49 Approved by: Ger Perez M.D. on 06/28/2020 at 14:55
[2020-06-28 14:21] LABS: Pregnancy Test Serum,Qual Negative (Negative)
[2020-06-28] MEDS: HYDROMORPHONE 0.5 MG INJ IV (15:00)
[2020-06-28] MEDS: HALOPERIDOL 5 MG/ML VIAL IV (16:01)
[2020-06-28] MEDS: diphenhydrAMINE 50 MG/ML VIAL IV (16:02)
[2020-06-28 17:06] LABS: Amorphous Sediment Urine 2+; Bacteria Urine Occasional (0-1); Culture Indicated Urine Cult Not Indicated; Mucus Urine 1+ (Negative); RBC Urine 1-5/HPF (0-5/HPF); Squamous Epithelial Cell Urine 0-1 /HPF (0-5/HPF); WBC Urine 1-5/HPF (0-5/HPF)
[2020-06-28 17:17] VITALS: BP 101/54; PULSE 65; RESP 16; O2SAT 99
[2020-06-28 18:32] VITALS: BP 96/55; PULSE 61; RESP 18; O2SAT 97
--- NOTE | 2020-06-28 18:37 | PC.NURSE ---
patient resting with eyes closed. patient reports that she is feeling better. denies any abdominal pain or nausea at this time. provider notified.
== END 2020-06-28 19:09 | disposition home or self-care (01) ==
PROVIDERS: Emergency Provider Emergency Medicine
DX: R10.9 Unspecified abdominal pain (principal); R11.2 Nausea with vomiting, unspecified; F12.90 Cannabis use, unspecified, uncomplicated
CPT/HCPCS: 36415; 74177; 80053; 81003; 81015; 83690; 84703; 85025; 85610; 85730; 93005; 96361; 96374; 96375; 99284; C9113; J1170; J1200; J1630; J2270; J2405; Q9967

== ENCOUNTER 2020-06-28 23:22 | Emergency (ER) | payer OTHER, SELFPAY ==
[2020-06-28 23:28] VITALS: BP 137/87; PULSE 66; RESP 26; TEMP 36.6; O2SAT 100
[2020-06-29] VITALS (10 sets, daily range): BP systolic 89–130; BP diastolic 46–81; PULSE 56–122; RESP 13–26; O2SAT 97–100
--- NOTE | 2020-06-29 00:50 | ED_ITS ---
HPI - Abdominal Pain General Chief Complaint: Abdominal Pain Stated Complaint: nausea vomiting, was here earlier Time Seen by Provider: 06/29/20 00:50 Source: family Mode of arrival: Wheelchair History of Present Illness HPI narrative: 29-year-old woman presents for her 2nd visit to the emergency room today complaining of abdominal pain and vomiting. She does use marijuana regularly typically up to 5 marijuana cigarettes daily. She switched from oil cartridges to Flower cigarettes recently. She has had more episodes of dramatic abdominal pain and vomiting very consistent with canabanoid hyperemesis syndrome. This morning she was given small amounts of morphine and Dilaudid for pain and finally Haldol and Benadryl were effective in controlling her nausea. At time of discharge she felt well. She went home had some Gatorade and some oatmeal and began profusely vomiting again. She comes in this evening with a heart rate at 120 to moderately orthostatic and continued severe nausea. Abdominal pain is not quite as severe this evening. Related Data Home Medications Medication Instructions Recorded Confirmed prednisone 40 mg PO QDX5 05/12/18 05/12/18 Previous Rx's Medication Instructions Recorded meclizine 25 mg PO BID-TID PRN #20 tab 05/12/18 ondansetron [Zofran ODT] 4 mg PO Q8-12H PRN #10 tab 05/12/18 pantoprazole [Protonix] 40 mg PO DAILY #30 tab 06/28/20 promethazine 25 mg PO TID PRN #20 tab 06/29/20 promethazine 25 mg DC Q6H PRN #12 each 06/29/20 Allergies Allergy/AdvReac Type Severity Reaction Status Date / Time No Known Drug Allergies Allergy Verified 05/12/18 11:57 Review of Systems Review of Systems ROS Unobtainable: All systems reviewed & are unremarkable except as noted in HPI and below Patient History Medical History Cannabinoid hyperemesis syndrome (Acute) Healthy adult (Acute) Surgical History No pertinent past surgical history (Acute) Social History Smoking Status: Never smoker Smoking Status: Never smoker alcohol intake frequency: 0-2 drinks per day Substance Use Type: marijuana Exam Narrative Exam Narrative: General: Healthy appearing, in no acute distress. Able to give a complete and coherent history. Well-nourished well-developed HEENT: Dry mucous membranes, normal sclera with reactive pupils, Respiratory: Lungs are clear to auscultation, no wheezing no rales no rhonchi. Full and symmetrical air movement Cardiac: Regular rate and rhythm no murmurs no bruits Abdomen: Soft nontender good bowel tones, no flank pain Skin: Warm and dry, no rashes Neurologic: Grossly neurologically intact with no obvious asymmetries or abnormalities Extremities: No trauma, well perfused Psych: Cooperative, appropriate insight and affect Initial Vital Signs Initial Vital Signs: Vital Signs Temperature 97.9 F 06/28/20 23:28 Pulse Rate 66 06/28/20 23:28 Respiratory Rate 26 H 06/28/20 23:28 Blood Pressure 137/87 06/28/20 23:28 Pulse Oximetry 100 06/28/20 23:28 Course Orders Ordered: ED Orders 06/29/20 00:30 Complete Blood Count AUTO DIFF Stat Comprehensive Metabolic Panel Stat Sodium Chloride (Normal Saline 0.9%) 1,000 mls @ 1,000 mls/hr IV BOLUS ONE Stop: 06/29/20 03:33 Last Admin: 06/29/20 02:35 Dose: 1,000 mls/hr Documented by: JOSAFAT Discontinued Medications Diphenhydramine HCl (Benadryl) 25 mg IV NOW ONE Stop: 06/29/20 00:53 Last Admin: 06/29/20 01:10 Dose: 25 mg Documented by: JOSAFAT Haloperidol (Haldol) 2 mg IV NOW ONE Stop: 06/29/20 00:53 Last Admin: 06/29/20 01:10 Dose: 2 mg Documented by: JOSAFAT Sodium Chloride (Normal Saline 0.9%) 1,000 mls @ 1,000 mls/hr IV BOLUS ONE Stop: 06/29/20 01:51 Last Infusion: 06/29/20 02:33 Dose: 0 mls/hr Documented by: Admin: 06/29/20 01:10 Dose: 1,000 mls/hr Documented by: JOSAFAT Vital Signs Vital signs: Vital Signs - 8 hr 06/28/20 23:28 06/29/20 00:46 Temperature 97.9 F Pulse Rate 66 Pulse Rate [Orthostatic Lying] 98 H Pulse Rate [Orthostatic Sitting] 122 H Pulse Rate [Orthostatic Standing] 113 H Respiratory Rate 26 H Blood Pressure 137/87 Blood Pressure [Orthostatic Lying] 129/71 Blood Pressure [Orthostatic Sitting] 130/81 Blood Pressure [Orthostatic Standing] 124/77 Pulse Oximetry 100 MDM - Abdominal Pain Medical Records Attestation: I reviewed the patient's medical records. Lab Data Attestation: I reviewed the patient's lab results. Result diagrams: 06/29/20 00:30 06/29/20 00:30 Labs: Lab Results 06/29/20 06/29/20 Range/Units 00:30 00:30 WBC 10.8 (4.5-11.0) X10^3/uL RBC 4.42 (4.0-5.2) X10^6/uL Hgb 12.8 (12.0-16.0) g/dL Hct 38.3 (36-46) % MCV 86.7 (80-100) fL MCH 28.9 (26-34) PG MCHC 33.3 (30-36) % RDW 13.2 (11.6-14.8) % Plt Count 270 (150-400) X10^3/uL Neut % (Auto) 87.5 H (50-75) % Lymph % (Auto) 9.4 L (25-40) % [place] % (Auto) 2.7 L (3-14) % Eos % (Auto) 0.1 L (2-4) % Baso % (Auto) 0.3 (0-2) % Neut # (Auto) 9500 H (8048-7010) /uL Lymph # (Auto) 1000 L (8890-8882) /uL [place] # (Auto) 300 (0-900) /uL Eos # (Auto) 0 (0-450) /uL Baso # (Auto) 0 (0-100) /uL Sodium 139 (137-145) mmol/L Potassium 3.4 (3.4-5.1) mmol/L Chloride 112 H (98-107) mmol/L Carbon Dioxide 21 L (22-32) mmol/L BUN 7 (7-17) mg/dL Creatinine 0.58 (0.52-1.04) mg/dL Estimated GFR > 60.0 (>60) mL/min BUN/Creatinine Ratio 12.1 (6-22) Glucose 111 H (70-100) mg/dL Calcium 8.3 L (8.4-10.2) mg/dL Total Bilirubin 0.5 (0.2-1.3) mg/dL AST 20 (14-36) IU/L ALT 10 (<35) IU/L Alkaline Phosphatase 51 (38-126) U/L Total Protein 7.0 (6.3-8.2) g/dL Albumin 4.0 (3.5-5.0) g/dL Globulin 3.0 (1.7-4.1) g/dL Albumin/Globulin Ratio 1.3 (1.0-2.8) MDM Narrative Medical decision making narrative: 29-year-old woman with presumed canabinoid hyperemesis syndrome presents with severe vomiting and nausea. She is immediately given 2 mg of IV Haldol, 25 mg of IV Benadryl a L of fluid with significant resolution of symptoms rapidly. A 2nd L of fluid is given she is tolerating oral liquids at this time. She is safe for home discharge. We had a long discussion regarding continued use of marijuana and continued dramatic nausea and abdominal pain. Discharge Plan Departure Patient Disposition: Home Clinical Impression: Cannabinoid hyperemesis syndrome Instructions: DI for Cannabinoid Hyperemesis Syndrome Activity Restrictions/Additional Instructions: I am sorry you are having such a difficult time with this nausea and vomiting Unfortunately, once this starts typically the only way that you improved is by stopping marijuana use altogether. Hot showers might be effective in controlling some of the nausea for you. Most of the nausea medicine available is not going to be helpful. Sometimes phenergan can be and I am going to give you a prescription for both the oral and the rectal version. 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
[2020-06-29 00:59] LABS: Add Manual Diff / Slide Review NO; Basophils Absolute Auto 0 /uL (0-100); Basophils Percent Auto 0.3 % (0-2); Eosinophils Absolute Auto 0 /uL (0-450); Eosinophils Percent Auto 0.1 % (2-4); Hematocrit 38.3 % (36-46); Hemoglobin 12.8 g/dL (12.0-16.0); Lymphocytes Absolute Auto 1000 /uL (1100-4500); Lymphocytes Percent Auto 9.4 % (25-40); Mean Corpuscular HGB Conc 33.3 % (30-36); Mean Corpuscular Hemoglobin 28.9 PG (26-34); Mean Corpuscular Volume 86.7 fL (80-100); Monocytes Absolute Auto 300 /uL (0-900); Monocytes Percent Auto 2.7 % (3-14); Neutrophils Absolute Auto 9500 /uL (1500-7000); Neutrophils Percent Auto 87.5 % (50-75); Platelet Count 270 X10^3/uL (150-400); Red Blood Cell Count 4.42 X10^6/uL (4.0-5.2); Red Cell Distribution Width 13.2 % (11.6-14.8); White Blood Cell Count 10.8 X10^3/uL (4.5-11.0)
[2020-06-29 01:05] LABS: Alanine Aminotransferase 10 IU/L (<35); Albumin Globulin Ratio 1.3 (1.0-2.8); Alkaline Phosphatase 51 U/L (38-126); Aspartate Aminotransferase 20 IU/L (14-36); BUN Creatinine Ratio 12.1 (6-22); Bilirubin Total 0.5 mg/dL (0.2-1.3); Blood Urea Nitrogen 7 mg/dL (7-17); Calcium 8.3 mg/dL (8.4-10.2); Carbon Dioxide 21 mmol/L (22-32); Chloride 112 mmol/L (98-107); Estimated Glomerular Filt Rate > 60.0 mL/min (>60); Glucose 111 mg/dL (70-100); HEMOLYSIS < 15 (0-50); Potassium 3.4 mmol/L (3.4-5.1); Sodium 139 mmol/L (137-145)
[2020-06-29] MEDS: SODIUM CHLORIDE 0.9% 1,000 ML 1000 ML IV ×2 (01:10→02:35)
[2020-06-29] MEDS: HALOPERIDOL 5 MG/ML VIAL 2 MG IV (01:10)
[2020-06-29] MEDS: diphenhydrAMINE 50 MG/ML VIAL 25 MG IV (01:10)
== END 2020-06-29 04:18 | disposition home or self-care (01) ==
PROVIDERS: Emergency Provider Emergency Medicine
DX: R11.2 Nausea with vomiting, unspecified (principal); F12.90 Cannabis use, unspecified, uncomplicated; R10.9 Unspecified abdominal pain
CPT/HCPCS: 36415; 80053; 85025; 96361; 96374; 96375; 99284; J1200; J1630